=== PATIENT | female | born 2005 | race Caucasian/White ===

== ENCOUNTER 2023-08-07 13:44 | Emergency (ER) | payer OTHER, SELFPAY ==
[2023-08-07 13:48] VITALS: BP 135/91
--- NOTE | 2023-08-07 15:26 | ED.GENMED ---
History of Present Illness
General
Chief Complaint: Dizziness
Source: patient
Exam Limitations: none
Time Seen by Provider: 08/07/23 15:06
Nursing documentation reviewed up to this point in time: agreed with
Travel History
Have you had any contact with someone who has COVID-19?: No
Do you have any symptoms of coronavirus? Fever > 100 degrees, chills, cough, shortness of breath, sore throat, loss of taste or smell, muscle aches, or headache?: No
History of Present Illness
History of Present Illness:
Patient is a 17 year old female presenting to the emergency department for evaluation of worsening dizziness. Patient reports initial symptom onset about a month ago while she was living in [facility] studying abroad. She endorses a lightheaded/foggy
sensation occurring daily and becoming more severe and more constant. Today patient reports that symptoms became more severe and has started to impact her ability to work. She denies any actual spinning sensation. She denies any worsening with
head position or when going from sitting to standing. Patient denies any headache, visual changes, chest pain, or shortness of breath. She denies any fever, chills, rashes, GI symptoms. Patient does report a very mild cold about a week prior to
symptom onset in [place].
Since return to [facility] patient has seen a primary care provider who referred her to vestibular therapy which she has been completing for the past few weeks without any improvement. She also had lab work completed which showed no acute
abnormalities. They have also seen her duralumin mechanic which found no acute abnormalities. They have an appointment scheduled with [facility] at the end of September. She has an MRI scheduled for mid August. 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
migraines but states that this feels different.
Patient states that she has not had a period since last July after discontinuing her OCP. She does follow with an MAINTENANCE WORKER [employer].
She has a family history of MS in her mother side.
Review of Systems
Review of Systems
Allergies reviewed?: Yes
All Other Systems: ROS reviewed and negative except as documented in HPI and ROS
Phy Exam
Physical Exam
Physical Exam:
Vitals: Patient's vital signs are stable
General: Patient is well appearing, no acute distress
Skin: Warm and dry, no rashes or lesions
Head: Normocephalic, atraumatic
Eyes: Sclera nonicteric. EOMs intact. No nystagmus. Pupils equal round and reactive to light bilaterally
Throat: Protecting airway. Uvula midline
Neck: Normal ROM, no cervical spine tenderness, no meningismus
Cardiac: Regular rate and rhythm, no murmurs.
Pulm: Normal respiratory effort, no wheezes, rales, rhonchi heard on exam.
Abdomen: No abdominal tenderness.
Extremities: No evidence of cyanosis or edema. Strength 5 out of 5 in upper and lower extremities.
Neuro: AAOx3. CN II-XII intact. No focal neurologic deficits. Sensation fully intact. Normal lldpsf-ci-titr. Steady gait.
Psychiatric: Normal affect.
Course
Orders/Labs/Results
Orders:
Orders
08/07/23 14:03
EKG [Electrocardiogram (*1)] Urgent
Reason for Study: Vertigo / Dizzy
EKG- Treatment ONCE
08/07/23 15:36
0.9% Sodium Chloride 1000 ml [Nss] 1,000 ml IV BOLUS
08/07/23 15:37
Test Result ONCE
08/07/23 15:45
CT Head W/o Iv Contrast Urgent
Comment:
Reason For Exam: dizziness
Complete Blood Count/With Diff Urgent
Comprehensive Metabolic Panel Urgent
HCG, Serum Qualitative Screen Urgent
Lyme PCR, DNA [S] Urgent
Magnesium Urgent
TSH Reflex To Free T4 Urgent
Abnormal Lab Results
08/07/23
15:45
Calcium 10.3 H mg/dl
(8.4-10.2)
08/07/23 15:45
08/07/23 15:45
Vital Signs
Initial and Last Documented VS:
Initial Vital Signs
Temp Pulse Resp BP Pulse Ox
98.1 F 75 20 135/91 99
08/07/23 13:48 08/07/23 13:48 08/07/23 13:48 08/07/23 13:48 08/07/23 13:48
Last Documented Vital Signs
Temp Pulse Resp BP Pulse Ox
98.4 F 72 16 104/92 99
08/07/23 18:07 08/07/23 18:07 08/07/23 18:07 08/07/23 18:07 08/07/23 18:07
MDM/Problems Addressed
Differential Diagnosis Includes:
Not limited to: Viral illness, dehydration, BPPV, M�ni�re's disease, sinusitis, malignancy, MS
MDM/Problems Addressed:
Patient is a 17-year-old female presenting with persistent and worsening dizziness over the past month. No improvement after vestibular therapy. Negative workup with primary care provider and duralumin mechanic. Patient does have family history of
MS. Patient does have neurology appointment scheduled for October. She has an MRI scheduled for August. Vitals are stable. Exam as above. She has no focal neurologic deficits on exam. Given persistence and worsening of symptoms�will check basic
labs, magnesium, TSH. Will check Lyme test. Will check noncontrast head CT. IV fluids.
Labs noted. no clinically significant abnormalities. Head CT shows no acute intracranial abnormality. EKG shows normal sinus rhythm without any signs of ischemia or arrhythmia. Called and discussed case with neurologist on-call, Dr. Ribeiro.
Given lack of neurologic findings on exam�he feels comfortable with discharge patient home and will arrange for closer in office follow-up with patient. He recommend vitamin supplements magnesium oxide and riboflavin daily as symptoms may be
related to ocular migraines.
Workup here has been negative. No indication for admission at this time. Patient remained stable. Will discharge with strict return precautions, close neurology follow-up outpatient. Will likely need MRI for further evaluation and to exclude MS.
Lyme test pending. Patient and patient's father comfortable with plan. All questions answered.
Chronic conditions affecting care:
History of ocular migraines
Acute Exacerbation and/or Progression of Chronic Illness:
N/A
*Radiology
Radiology exam reviewed: preliminary read by ED provider and radiology read reviewed
*Pulse Oximetry
Patient hypoxic: no
*EKG
Interpreted by ED Provider?: Yes
EKG Intrepretation Date: 08/08/23
Interpretation: normal
Comparison EKG: no comparison EKG present
Heart Rate: 80
Rate: normal
Rhythm: sinus
Ischemia: no ischemia
*Beauty Culturist Apprentice Interpretation
Rate: Beauty Culturist Apprentice- N/A
*Critical Care Note
Total Time (30-74mins, 75-104mins- exclusive of procedures): Not Applicable
Patient Management
Discussion with other providers: [employer] (Neurology-Dr. Ribeiro)
ED Attending Note
-
Portions of this chart may have been created with voice recognition software.� Occasional wrong word or��sound alike� substitutions may have occurred due to the inherent limitations of voice recognition software.
Discharge Plan
Departure
Patient Disposition: Home (Routine Discharge)
Date of Disposition: 08/07/23
Time of Disposition: 17:33
Patient with high blood pressure during this ER visit?: No
Condition: Good
Covid-19: Not Applicable
Discharge Problem:
Dizziness
Instructions: Dizziness
Referrals:
Vamsi Ribeiro MD [Active] - Next open appointment
Kelley Erickson PA [Family Provider] -
Activity Restrictions/Additional Instructions:
- RETURN TO THE EMERGENCY DEPARTMENT WITH ANY HIGH FEVERS, SEVERE HEADACHE, VISUAL CHANGES, ALTERED MENTAL STATUS, NUMBNESS/TINGLING IN LOWER EXTREMITIES, LOWER EXTREMITY WEAKNESS, WORSENING IN CURRENT SYMPTOMS, OR ANY OTHER CONCERNS
-As discussed�you should follow-up with neurology as soon as possible. The contact information has been provided for you above.
-As recommended by neurology�you should start taking magnesium oxide 400 mg once daily and riboflavin 400 mg once daily. These both can be bought [id number]. It is important to stay well-hydrated. Continue all other medications as
prescribed.
-We will contact you if your Lyme test comes back positive within the next 5 business days.
-Do not hesitate to return to the emergency department any acute worsening of symptoms
Interventions
Interventions:
*Risk Screen - Suicide Last Done: 08/07/23 13:48
*General Assessment Last Done: 08/07/23 13:48
*Neglect/Abuse Screening Last Done: 08/07/23 13:48
ED- Fall Risk Assessment Last Done: 08/07/23 15:47
*ED COVID-19 Vaccine History Last Done: 08/07/23 15:47
*Nursing Disposition Last Done: 08/07/23 18:07
ED- Neurological Assessment Last Done: 08/07/23 15:47
ED- Cardiac Assessment Last Done: 08/07/23 18:07
ED Swallowing Screen Last Done: 08/07/23 15:47
Discharge Date and Time
Discharge Date/Time: 08/07/23 18:08
Print Language: IRISH
[2023-08-07 15:46] VITALS: BP 109/81
[2023-08-07] MEDS: NSS 1000 IV (15:46)
[2023-08-07 15:47] VITALS: BMI 21.8
[2023-08-07 16:00] VITALS: BP 108/74
[2023-08-07 16:01] LABS: % Basophils 0.5 % (0-2); % Eosinophils 1.7 % (0-6); % Immature Granulocytes 0.2 % (0-0.5); % Monocytes 6.7 % (1.7-9.3); % Neutrophils 64.9 % (42.2-75.2); Absolute Eosinophils 0.1 10^3/uL (0-0.7); Absolute Lymphocytes 2.1 10^3/uL (1.2-3.4); Absolute Monocytes 0.6 10^3/uL (0.1-0.6); Absolute Neutrophils 5.3 10^3/uL (1.4-6.5); Hematocrit 38.6 % (37.0-47.0); Hemoglobin 13.6 g/dL (12.0-16.0); Mean Corp Hgb Conc. 35.2 g/dL (33.0-37.0); Mean Corpuscular Hgb 30.1 pg (27.0-31.0); Mean Corpuscular Volume 85.4 fL (81.0-99.0); Mean Platelet Volume 9.1 fL (7.4-10.4); Nucleated Red Blood Cells % 0 %; Platelet Count 280 10^3/uL (130-400); Red Blood Cell Count 4.52 10^6/uL (4.20-5.40); White Blood Cell Count 8.2 10^3/uL (4.8-10.8)
[2023-08-07 16:10] LABS: HCG, Serum Qualitative Screen Negative
[2023-08-07 16:16] LABS: ALT (SGPT) 23 U/L (0-35); AST (SGOT) 36 U/L (14-36); Albumin 4.9 g/dl (3.5-5.0); Alkaline Phosphatase 70 U/L (38-126); Blood Urea Nitrogen 11 mg/dl (7-17); Calcium 10.3 mg/dl (8.4-10.2); Carbon Dioxide 22 mmol/L (22-30); Chloride 105 mmol/L (98-107); Estimated Creatinine Clearance > 125 ml/min; Glucose 93 mg/dl (70-99); Magnesium 2.1 mg/dl (1.6-2.3); Potassium 4.2 mmol/L (3.5-5.1); Sodium 138 mmol/L (135-145); Total Bilirubin 0.5 mg/dl (0.2-1.3); Total Protein 8.1 g/dl (6.3-8.2); eGFR > 60.00
[2023-08-07 17:01] LABS: TSH Reflex To Free T4 1.19 uIU/ml (0.47-4.68)
[2023-08-07 17:32] VITALS: BP 114/70
[2023-08-07 18:00] VITALS: BP 104/92
[2023-08-07 18:07] VITALS: BP 104/92
== END 2023-08-07 18:08 | disposition home or self-care (01) ==
LOC: EMR 13:44
PROVIDERS: Physician Assistant; EMERGENCY PHYSICIAN Emergency Medicine; FAMILY PHYSICIAN Physician Assistant
DX: R42 Dizziness and giddiness (principal)
CPT/HCPCS: 99284; 96360; 70450; 80053; 83735; 84443; 84703; 85025; 87476; 93005

== ENCOUNTER → 2023-08-30 18:45 | Outpatient (REF) | payer OTHER, SELFPAY | LOC: MRI 3T 18:45 | PROVIDERS: ATTENDING PHYSICIAN Physician Assistant | DX: R42 Dizziness and giddiness (principal); G43.109 Migraine with aura, not intractable, without status migrainosus | CPT/HCPCS: 70553; A9575 ==